=== PATIENT | female | born 2000 | race African-American/Black ===

== ENCOUNTER 2018-10-15 11:42 | Emergency (ER) | payer MEDICAID ==
[~2018-10-15] VITALS: Ht 182.9 cm; Wt 85.0 kg
[2018-10-15 11:44] VITALS: BP 118/77
== END 2018-10-15 17:20 | disposition left against medical advice (07) ==
LOC: ER 11:42
DX: Z53.21 Procedure and treatment not carried out due to patient leaving prior to being seen by health care provider (principal)